=== PATIENT | male | born 1975 | race Caucasian/White ===

== ENCOUNTER 2017-04-22 18:11 | Emergency (ER) | payer BC ==
[~2017-04-22] VITALS: Ht 157.5 cm; Wt 84.8 kg
[~2017-04-22 18:11] MED LIST: AUGMENTIN875 MG PO; BENICAR; BICITRA SOLUTI473 ML PO; COLACE100 MG PO; FLOMAX0.4 MG PO; HYDROCODON-ACE1 EAC7 PO; INDOCIN25 MG PO; LIDOCAINE20 MG/1 M5 PO; LISINOPRIL10 MG PO; NORCO 10/3251 TABLET PO; PENTASA250 MG PO; PERCOCET 5/31 TABLET PO; PERCOCET 7.51 TABLET PO; PRINIVIL20 MG PO; RECTICARE30 GM TP; ULTRACET1 TABLET PO; VALIUM5 MG PO; ZESTRIL,PRINIVI10 MG PO; ZOFRAN ODT8 MG PO
[2017-04-22 18:37] LABS: ADD MIUA? YES; BILIRUBIN NEGATIVE; BLOOD NEGATIVE; COLOR YELLOW ((YELLOW)); GLUCOSE (STRIP) NEGATIVE; KETONES NEGATIVE; LEUKOCYTES TRACE; NITRITE NEGATIVE; PROTEIN (STRIP) NEGATIVE; SPECIFIC GRAVITY 1.019 (1.000-1.030); UROBILINOGEN 0.2 MG/DL (0.2-1.0)
[2017-04-22 18:41] LABS: HEMATOCRIT 41.2 % (38.0-50.0); MCH 29.6 PG (29.0-34.0); MCHC 33.7 G/DL (30.0-36.0); MCV 87.8 FL (86-99); MEAN PLAT.VOLUME 8.8 uM^3 (9.0-12.4); PLATELET COUNT 365 K/uL (156-360); RBC DIS.WIDTH-CV 13.4 % (11.8-14.6); RBC DIS.WIDTH-SD 42.8 % (39-53); RED BLOOD COUNT 4.69 M/uL (4.00-5.50); WHITE BLOOD COUNT 11.8 K/uL (4.1-10.2)
[2017-04-22 18:43] LABS: BACTERIA NONE SEEN /HPF; CALCIUM OXALATE CRYSTALS 1+ /HPF; EPITHELIAL CELLS NONE SEEN /HPF; HYALINE CASTS 0-5 /LPF; MUCUS TRACE /LPF; RED BLOOD CELLS 0-5 /HPF (0-5); UCUL ADDED? NO; WHITE BLOOD CELLS 0-5 /HPF (0-5)
[2017-04-22 18:52] LABS: CHLORIDE 103 mEq/L (99-109); POTASSIUM 4.5 mEq/L (3.7-5.4); SODIUM 139 mEq/L (136-147)
[2017-04-22 18:54] LABS: GLUCOSE 103 mg/dL (70-99)
[2017-04-22 18:55] LABS: ANION GAP 10 MEQ/L (2-14)
[2017-04-22 18:56] LABS: TOTAL BILIRUBIN 0.9 mg/dL (0.0-1.0)
[2017-04-22 18:57] LABS: ALKALINE PHOSPHATASE 64 IU/L (3-129)
[2017-04-22 18:58] LABS: GFR ESTIMATE (CALCULATED) > 59 mL/min/
[2017-04-22 18:59] LABS: UREA NITROGEN (BUN) 16 mg/dL (9-23)
[2017-04-22] MEDS ORDERED: NORCO 5/3251 TABLET PO (21:10)
[2017-04-22] MEDS ORDERED: PREDNISONE5 M1 PO (21:10)
[2017-04-22 21:23] VITALS: BP 124/71
== END 2017-04-22 21:23 | disposition home or self-care (01) ==
LOC: RME 18:11 → EME 18:11 → RME 21:23
DX: K50.90 Crohn's disease, unspecified, without complications (principal); I10 Essential (primary) hypertension; Z87.442 Personal history of urinary calculi; Z87.891 Personal history of nicotine dependence
CPT/HCPCS: 74177; 80053; 81003; 85027; 99281; 99285; J2270; J7040

== ENCOUNTER → 2017-06-20 | Outpatient (CLI) | payer OTHER, BC ==
[~2017-06-20] MED LIST changes: +NORCO 5/3251 TABLET PO; +PREDNISONE5 M1 PO; +ZESTRIL20 MG PO
== END | disposition home or self-care (01) ==
LOC: CDC 11:17
DX: Z01.810 Encounter for preprocedural cardiovascular examination (principal); K42.9 Umbilical hernia without obstruction or gangrene
CPT/HCPCS: 93000

== ENCOUNTER 2017-06-23 08:39 | Day surgery (SDC) | payer OTHER ==
[~2017-06-23] VITALS: Ht 157.5 cm; Wt 81.6 kg
[2017-06-23 09:14] VITALS: BP 131/85
[2017-06-23] MEDS ORDERED: COLACE100 MG PO (11:32)
[2017-06-23] MEDS ORDERED: PERCOCET 5/31 TABLET PO (11:32)
[2017-06-23 12:55] VITALS: BP 121/58
[2017-06-23 13:55] VITALS: BP 113/76
[2017-06-23 15:55] VITALS: BP 120/71
== END 2017-06-23 16:00 | disposition home or self-care (01) ==
LOC: SDC
PROC: 0WUF4JZ Supplement Abdominal Wall with Synthetic Substitute, Percutaneous Endoscopic Approach (ICD-10-PCS; principal; 2017-06-23)
DX: K42.9 Umbilical hernia without obstruction or gangrene (principal); K66.0 Peritoneal adhesions (postprocedural) (postinfection); I10 Essential (primary) hypertension
CPT/HCPCS: C1781; J0330; J0690; J1100; J1170; J1885; J2250; J2405; J2710; J3010